=== PATIENT | male | born 1990 ===

== ENCOUNTER → 2022-08-06 11:02 | Outpatient (BNVA) | payer OTHER, SELFPAY | PROVIDERS: PCP Internal Medicine; Visit Provider Internal Medicine Endocrinology, Diabetes & Metabolism | DX: E10.65 Type 1 diabetes mellitus with hyperglycemia (principal); Z96.41 Presence of insulin pump (external) (internal); Z79.4 Long term (current) use of insulin | CPT/HCPCS: 82947; 83036 ==

== ENCOUNTER 2022-08-12 14:06 | Outpatient (REF) | payer OTHER, SELFPAY ==
[2022-08-12 15:20] LABS: Estimated Average Glucose 174 mg/dL; Hemoglobin A1c % 7.7 %
[2022-08-12 15:31] LABS: Alanine Aminotransferase 32 U/L (0-40); Albumin Level 4.6 g/dL (3.5-5.0); Alkaline Phosphatase 100 U/L (39-117); Anion Gap 13 (12-20); Aspartate Amino Transferase 26 U/L (5-37); Bilirubin Total 1.2 mg/dL (0.0-1.0); Blood Urea Nitrogen 17 mg/dL (9-16); Calcium 10.4 mg/dL (8.4-10.2); Carbon Dioxide 33 mmol/L (22-29); Chloride 104 mmol/L (96-108); Estimated Glomerular Filt Rate > 60; Glucose Random 73 mg/dL (60-115); Potassium 4.5 mmol/L (3.3-5.1); Sodium 145 mmol/L (135-145); Total Protein 7.8 g/dL (6.5-8.0)
[2022-08-12 15:32] LABS: Creatinine Urine 155.34 mg/dL; Microalbum/Creatinine Ratio Ur 55.3 ug/mg cr
== END 2022-08-12 14:07 | disposition home or self-care (01) ==
LOC: HO.LAB 14:06
PROVIDERS: Absent Provider Internal Medicine; PCP Internal Medicine; Visit Provider Internal Medicine Endocrinology, Diabetes & Metabolism
DX: E10.65 Type 1 diabetes mellitus with hyperglycemia (principal); R74.01 Elevation of levels of liver transaminase levels
CPT/HCPCS: 36415; 80053; 82043; 83036

== ENCOUNTER 2023-02-23 10:06 | Outpatient (REF) | payer OTHER, SELFPAY ==
[2023-02-23 10:55] LABS: Estimated Average Glucose 180 mg/dL; Hemoglobin A1c % 7.9 % (<6.0)
[2023-02-23 10:58] LABS: Alanine Aminotransferase 50 U/L (0-40); Albumin Level 4.2 g/dL (3.5-5.0); Alkaline Phosphatase 101 U/L (39-117); Anion Gap 13 (12-20); Aspartate Amino Transferase 31 U/L (5-37); Bilirubin Total 0.7 mg/dL (0.0-1.0); Blood Urea Nitrogen 10 mg/dL (9-16); Calcium 10.1 mg/dL (8.4-10.2); Carbon Dioxide 29 mmol/L (22-29); Chloride 107 mmol/L (96-108); Estimated Glomerular Filt Rate > 60; Glucose Random 120 mg/dL (60-115); Potassium 3.8 mmol/L (3.3-5.1); Sodium 145 mmol/L (135-145)
[2023-02-23 10:59] LABS: Cholesterol 124 mg/dL (<200); HDL Cholesterol 40 mg/dL (>40); LDL Cholesterol Calculated 71 mg/dL (<100); Triglycerides 68 mg/dL (<150)
== END 2023-02-23 10:07 | disposition home or self-care (01) ==
LOC: HO.10HDL 10:06
PROVIDERS: Internal Medicine; Visit Provider Internal Medicine Endocrinology, Diabetes & Metabolism
DX: E10.65 Type 1 diabetes mellitus with hyperglycemia (principal); E78.00 Pure hypercholesterolemia, unspecified; I10 Essential (primary) hypertension
CPT/HCPCS: 36415; 80053; 80061; 83036

== ENCOUNTER 2023-02-24 08:23 | Outpatient (AMB) | payer OTHER, SELFPAY ==
[2023-02-24 08:34] VITALS: BP 132/64; PULSE 102; BMI 30.2
--- NOTE | 2023-02-24 08:34 | A.OFFVIS_ITS ---
Intake Vital Signs 02/24/23 08:34 Height 5 ft 8 in Weight 198 lb 6.656 oz BMI 30.2 BP 132/64 Blood Pressure Location Lt brachial Position Sitting Pulse 102 H Pulse Source Pulse Oximeter Intake Visit Reasons: DM1-CONFIRMED Intake Note: Patient present today to follow up on Type 1 Diabetes Mellitus. Patient receives DME supplies through: Pharmacy Patient receives pump supplies through: [employer] Last Diabetic Eye exam: 2020 Last Podiatry Visit: None Random Glucose: 105 mg/dl HgA1C: 7.9% 02/23/23 Derrickman Helper Required: No Accompanied by: Self / Same As Patient Allergies cephalexin [Keflex] Allergy (Unknown, Verified 02/24/23 08:39) Unknown lisinopril Allergy (Unknown, Verified 02/24/23 08:39) CHEST PAINS From KEFLEX Allergy (Unknown, Uncoded 08/06/22 11:04) RASH Medication List - Last Reconciled 02/24/23 by Edgar Cannon MD aspirin (Adult Low Dose Aspirin) 81 mg PO DAILY atorvastatin 10 mg PO BEDTIME blood-glucose sensor (Dexcom G6 Sensor device) As directed change every 10 days blood-glucose transmitter (Dexcom G6 Transmitter device) As directed glucagon 3 mg/actuation (Baqsimi) 3 mg intranasal ONCE insulin lispro-aabc (Lyumjev U-100 Insulin) subcutaneously use up to 140 units/day via insulin pump losartan 50 mg PO DAILY HPI HPI Comments History of Present Illness Details 32 YO M with is seen in consultation fo r T1DM at the request of PCP. Patient last or Dr. Ibarra on 02/09/2019. Pad none sensor shows hyperglycemia overnight which improved slightly during the chimney builder brick hours and then hyperglycemia the rest the afternoon starting at noon spike in blood sugar after dinner. He is not always entering carbohydrates into the pump If On Pump/Sensor: Tandem T slim X 2 with basal IQ Basal rate(s) (units/hour) : 12 {AM/}? to 2 {AM}? 2 units / hr 2 {AM}? to 8 {AM}? 1.8 units / hr 8AM = 1.2 4P =1.3 9P= 1.7 Bolus setting Insulin Carbohydrate Ratio (s) 12 {AM/}? to 12{AM}? 1.6 Correction Factor / Sensitivity Factor 12 A =20 4 A =22 12 P= 18 Active Insulin Time:? 4 hours Target(s): 12 {AM/}? to 12 {AM/} 100 ???* Total daily dose of insulin is 94.2 units with 68% bolus and 32% basal. ??? Patient understands the basic concepts of pump therapy, how to give insulin for meals and snacks, how to troubleshoot for hyper and hypoglycemia. Per the CGM Dexcom CGMS is active 100 % of time . data the patient's predicted A1C is 8.3% Avg glucose is 207 . Variability of 94 The patient's blood sugars were in target 40% of the time, above target 68% of the time, and below target 1% of the time Reports low sugars once a mo . Very rare Treats lows with eat something . Checks sugar after to ensure it is rising. Follows the rule of 15's. Has eyes checked yearly, last eye exam 2 yrs ago has appt April 2023 , no retinopathy. Denies neuropathy, Has microalbumuria on Losartan Has HLD, on statin. No history of CAD. [Had] diabetes education. Diet/Carb counting: Need swork Labs: [facility] Medical History (Updated 08/06/22 @ 11:08 by Edgar Cannon MD) Uncontrolled type 1 diabetes mellitus with hyperglycemia, with long-term current use of insulin Surgical History History of testicular surgery Family History Father No problems noted. Mother No problems noted. Social History Alcohol intake: never Patient Tobacco Use Status: Never used Tobacco Physical Exam Vital Signs: Last Vital Signs Pulse 102 H 02/24/23 08:34 BP 132/64 02/24/23 08:34 BMI result Body Mass Index 30.2 Absence of Cushingoid features. Absence of acromegalic features. Neck exam reveals nl size thyroid about 15 gms. No thyroid nodules palpable. No carotid bruits present. Lungs CTA. Heart S1 S2, Reg R/R. No M/R/ G. Skin exam reveals absence of vitiligo or acanthosis nigricans. Abdominal exam reveals Soft NT/ND with NA BS. No organomegaly present. Extrem Other: Visual exam of foot performed. No ulcerations or open lesions. No onchomycosis, no callouses.Pulses 2 + distally. Sensation intact to monofilament exam. Vibratory sensation sensed 10 seconds in right, 10 seconds in left with 128 Hz tuning fork Results Reviewed Results Reviewed: Laboratory Last Values Glucose (Clinic) 105 mg/dL (60-115) 02/24/23 08:41 Assessment & Plan Assessment & Plan (1) Uncontrolled type 1 diabetes mellitus with hyperglycemia, with long-term current use of insulin: Code(s): E10.65 - Type 1 diabetes mellitus with hyperglycemia Plan: This is a 32-year-old male with history of type 1 diabetes being treated with insulin pump with fair glycemic control and no known microvascular or macrovascular complications. Plan is to [place] schedule appointments with certified breastfeeding educator and methodologist. He was told not to enter phantom carbs prior to meals. Will try to convert him to control IQ after meets with certified breastfeeding educator. Will also attempt to we switch him back to Lyumjev as he was doing better with this than Humalog as tends to eat when taking the bolus. If he continues to have post-lunch and post-dinner excursions, may consider tightening insulin: Carbohydrate at 12:00 to 00:00 to 1:5 which can be done at the educator Lyumjev U-100 samples given to pt lot number [id number] F expiration date 05/12/2023 Medications: New insulin lispro-aabc (Lyumjev U-100 Insulin) subcutaneously use up to 140 units/day via insulin pump 45 mL 5RF Discontinued insulin aspart U-100 (Novolog U-100 Insulin aspart) Discontinued Reason: Doctor's Order infuse up to 140 units daily via insulin pump subcutaneously; 40 mL 5RF Coding Level of Care Code Est Pt Level 4 (96626) Diagnoses Uncontrolled type 1 diabetes mellitus with hyperglycemia, with long-term current use of insulin E10.65
[2023-02-24 08:45] LABS: Glucose, Whole Blood 105 mg/dL (60-115)
== END 2023-02-24 09:45 | disposition home or self-care (01) ==
PROVIDERS: PCP Internal Medicine; Visit Provider Internal Medicine Endocrinology, Diabetes & Metabolism
DX: E10.65 Type 1 diabetes mellitus with hyperglycemia (principal)
CPT/HCPCS: 99214

== ENCOUNTER → 2023-02-24 08:23 | Outpatient (BNVA) | payer OTHER, SELFPAY | PROVIDERS: PCP Internal Medicine; Visit Provider Internal Medicine Endocrinology, Diabetes & Metabolism | DX: E10.65 Type 1 diabetes mellitus with hyperglycemia (principal); Z96.41 Presence of insulin pump (external) (internal) | CPT/HCPCS: 82947 ==

== ENCOUNTER 2023-08-09 14:21 | Outpatient (AMB) | payer OTHER, SELFPAY ==
--- NOTE | 2023-08-09 14:22 | A.OFFVIS_ITS ---
Vital Signs 08/09/23 14:25 Height 5 ft 8 in Weight 191 lb 12.835 oz BMI 29.2 BP 128/70 Blood Pressure Location Rt brachial Position Sitting Pulse 71 Pulse Source Pulse Oximeter Intake Visit Reasons: f/u Type 1 DM-lvm Intake Note: Patient presents today to follow up on D1MT. Last Diabetic Eye exam: 06/2023 Last Podiatry Visit: Doens't have one Random Glucose: 156 mg/dl HgA1c: 7.9% Life Sciences Manager Required: No Accompanied by: Self / Same As Patient Allergies cephalexin [Keflex] Allergy (Unknown, Verified 08/09/23 14:29) Unknown lisinopril Allergy (Unknown, Verified 08/09/23 14:29) CHEST PAINS From KEFLEX Allergy (Unknown, Uncoded 08/09/23 14:29) RASH HPI Comments Details: 32 YO M with is seen in consultation for T1DM at the request of PCP. If On Pump/Sensor: Tandem T slim X 2 with basal IQ Basal rate(s) (units/hour) : 12 {AM/}? to 2 {AM}? 2 units / hr 2 {AM}? to 8 {AM}? 1.8 units / hr 8AM = 1.2 4P =1.3 9P= 1.7 Bolus setting Insulin Carbohydrate Ratio (s) 12 {AM/}? to 12{AM}? 1.6 Correction Factor / Sensitivity Factor 12 A =20 4 A =22 12 P= 18 Active Insulin Time:? 4 hours Target(s): 12 {AM/}? to 12 {AM/} 100 ???* Total daily dose of insulin is 80.52 units with 60% bolus and 40% basal. ??? Patient understands the basic concepts of pump therapy, how to give insulin for meals and snacks, how to troubleshoot for hyper and hypoglycemia. Per the CGM Dexcom CGMS is active 100 % of time . data the patient's predicted A1C is 7.8% Avg glucose is 186 . Variability of 69 The patient's blood sugars were in target 43% of the time, above target 55% of the time, and below target 1% of the time Pattern shows persistent hyperglycemia throughout the night with elevation point of care after breakfast Reports no low sugars Treats lows with eat something . Checks sugar after to ensure it is rising. Follows the rule of 15's. Has eyes checked yearly, last eye exam 1 mo ago , no retinopathy. Denies neuropathy, Has microalbumuria on Losartan Has HLD, on statin. No history of CAD. [Had] diabetes education. Diet/Carb counting: Need swork Labs: [facility] Medical History (Updated 08/06/22 @ 11:08 by Edgar Cannon MD) Uncontrolled type 1 diabetes mellitus with hyperglycemia, with long-term current use of insulin Surgical History History of testicular surgery Family History Father No problems noted. Mother No problems noted. Social History Alcohol intake: never Patient Tobacco Use Status: Never used Tobacco Physical Exam Vital Signs: Last Vital Signs Pulse 71 08/09/23 14:25 BP 128/70 08/09/23 14:25 BMI result Body Mass Index 29.2 Absence of Cushingoid features. Absence of acromegalic features. Neck exam reveals nl size thyroid about 15 gms. No thyroid nodules palpable. No carotid bruits present. Lungs CTA. Heart S1 S2, Reg R/R. No M/R/ G. Skin exam reveals absence of vitiligo or acanthosis nigricans. Abdominal exam reveals Soft NT/ND with NA BS. No organomegaly present. Extrem Other: Visual exam of foot performed. No ulcerations or open lesions. No onchomycosis, no callouses.Pulses 2 + distally. Sensation intact to monofilament exam. Vibratory sensation sensed 10 seconds in right, 10 seconds in left with 128 Hz tuning fork Results AMB Hemoglobin A1c AMB Hemoglobin A1c 7.9 % Last Edit by GUILLAUME Villareal on 08/09/23 14:46 Results Reviewed Results Reviewed: Laboratory Last Values Glucose (Clinic) 156 mg/dL (60-115) H 08/09/23 14:32 Hgb A1c (Clinic) 7.9 % (4.0-6.0) H 08/09/23 14:38 Assessment & Plan Assessment & Plan (1) Uncontrolled type 1 diabetes mellitus with hyperglycemia, with long-term current use of insulin: Code(s): E10.65 - Type 1 diabetes mellitus with hyperglycemia Category: Medical Plan: This is a 32-year-old male with history of type 1 diabetes being treated with insulin pump with fair glycemic control and no known m icrovascular or macrovascular complications. Plan is to [place] schedule appointments with personal development educator and termite renewal inspector. Will increase basal rate to 2.2 at 12 AM and 2 units/hr at 2 AM Will try to convert him to control IQ after meets with personal development educator. If he continues to have post-lunch and post-dinner excursions, may consider tightening insulin: Carbohydrate at 12:00 to 00:00 to 1:5 which can be done at the educator. We also talked about potentially switching to the iLet device. We will check a microalbumin to creatinine ratio Orders: Orders AMB Hemoglobin A1c Today E10.65 - Type 1 diabetes mellitus with hyperglycemia, Z13.9 - Encounter for screening, unspecified Microalbumin, Random (w Creat) Today E10.65 - Type 1 diabetes mellitus with hyperglycemia Coding Level of Care Code Est Pt Level 4 (24980) Diagnoses Uncontrolled type 1 diabetes mellitus with hyperglycemia, with long-term current use of insulin E10.65
[2023-08-09 14:25] VITALS: BP 128/70; PULSE 71; BMI 29.2
[2023-08-09 14:37] LABS: Glucose, Whole Blood 156 mg/dL (60-115)
== END 2023-08-09 15:14 | disposition home or self-care (01) ==
PROVIDERS: PCP Internal Medicine; Visit Provider Internal Medicine Endocrinology, Diabetes & Metabolism
DX: Z13.9 Encounter for screening, unspecified (principal); E10.65 Type 1 diabetes mellitus with hyperglycemia
CPT/HCPCS: 99214

== ENCOUNTER → 2023-08-09 14:21 | Outpatient (BNVA) | payer OTHER, SELFPAY | PROVIDERS: PCP Internal Medicine; Visit Provider Internal Medicine Endocrinology, Diabetes & Metabolism | DX: E10.65 Type 1 diabetes mellitus with hyperglycemia (principal); Z79.4 Long term (current) use of insulin | CPT/HCPCS: 82947; 83036 ==

== ENCOUNTER 2023-09-07 07:34 | Outpatient (AMB) | payer OTHER, SELFPAY ==
--- NOTE | 2023-09-07 08:38 | MHC.AMDMED ---
Intake Intake Visit Reasons: Type 1 DM-confirmed Salesperson Women'S Dresses Required: No Accompanied by: Self / Same As Patient Allergies cephalexin [Keflex] Allergy (Unknown, Verified 08/09/23 14:29) Unknown lisinopril Allergy (Unknown, Verified 08/09/23 14:29) CHEST PAINS From KEFLEX Allergy (Unknown, Uncoded 08/09/23 14:29) RASH HPI Comprehensive Diabetes Asmnt Most Recent Diabetes Results: Hemoglobin A1c 6.5 % 12/14/18 Microalb/Creat Ratio 55.3 ug/mg cr 08/12/22 Cholesterol 124 mg/dL (<200) 02/23/23 HDL Cholesterol 40 mg/dL (>40) L 02/23/23 Triglycerides 68 mg/dL (<150) 02/23/23 Creatinine 1.06 mg/dL (0.5-1.4) 02/23/23 Blood Urea Nitrogen 10 mg/dL (9-16) 02/23/23 Sodium 145 mmol/L (135-145) 02/23/23 Potassium 3.8 mmol/L (3.3-5.1) 02/23/23 Chloride 107 mmol/L (96-108) 02/23/23 Carbon Dioxide 29 mmol/L (22-29) 02/23/23 Calcium 10.1 mg/dL (8.4-10.2) 02/23/23 AST 31 U/L (5-37) 02/23/23 ALT 50 U/L (0-40) H 02/23/23 Total Protein 7.0 g/dL (6.5-8.0) 02/23/23 Albumin 4.2 g/dL (3.5-5.0) 02/23/23 [facility] Medical History (Updated 08/06/22 @ 11:08 by Edgar Cannon MD) Uncontrolled type 1 diabetes mellitus with hyperglycemia, with long-term current use of insulin Surgical History History of testicular surgery Family History Father No problems noted. Mother No problems noted. Social History Alcohol intake: never Patient Tobacco Use Status: Never used Tobacco Assessment & Plan Assessment & Plan (1) Uncontrolled type 1 diabetes mellitus with hyperglycemia, with long-term current use of insulin: Code(s): E10.65 - Type 1 diabetes mellitus with hyperglycemia Plan: Pump Assessment: Type of DM: type 1 Currently on T-Slim with Basal IQ Reviewed insulin pump basics today with Patient. Explained pros and cons of insulin pumps. Showed pt various pumps, infusion sets, and cgms currently available. Reviewed need to wear pump 24/7 and need to change infusion set every 3 days. Also stressed importance of frequent BG checks, 4x daily minimum or use pump that is integrated with CGM.? TDD:80 Patient demonstrated motivation for continued insulin pump education and understands the need to complete education prior to starting insulin pump for best outcome. Will follow up when he decides about new pump Portions of this note were created using voice recognition software, please excuse any words or phrases that may have been misinterpreted. Coding Level of Care Code Est Pt Level 1 (86474) Diagnoses Uncontrolled type 1 diabetes mellitus with hyperglycemia, with long-term current use of insulin E10.65
== END 2023-09-07 08:49 | disposition home or self-care (01) ==
PROVIDERS: PCP Internal Medicine; Visit Provider Registered Nurse Diabetes Educator
DX: E10.65 Type 1 diabetes mellitus with hyperglycemia (principal)

== ENCOUNTER → 2023-09-07 07:34 | Outpatient (BNVA) | payer OTHER, SELFPAY | PROVIDERS: PCP Internal Medicine; Visit Provider Registered Nurse Diabetes Educator | DX: E10.65 Type 1 diabetes mellitus with hyperglycemia (principal); Z96.41 Presence of insulin pump (external) (internal) | CPT/HCPCS: 99211 ==

== ENCOUNTER 2024-03-10 09:04 | Outpatient (AMB) | payer OTHER, SELFPAY ==
--- NOTE | 2024-03-10 07:32 | A.OFFVIS_ITS ---
Vital Signs 03/10/24 09:09 Height 5 ft 8 in Weight 189 lb 9.561 oz BMI 28.8 BP 120/80 Blood Pressure Location Rt brachial Position Sitting Pulse 96 Pulse Source Pulse Oximeter Intake Visit Reasons: type 1 dm Intake Note: Patient presents today to re-establish treatment for Type 1 Diabetes Mellitus: Last Diabetic eye exam was on: DUE Last Podiatry exam was on: Patient does not see a Library Services Dean Most recent HbA1c: 7.6%, 03/10/2024 Random Glucose- 112 mg/dL, Today Pattern Drafter Required: No Accompanied by: Self / Same As Patient Allergies cephalexin [Keflex] Allergy (Unknown, Verified 03/10/24 09:17) Unknown lisinopril Allergy (Unknown, Verified 03/10/24 09:17) CHEST PAINS From KEFLEX Allergy (Unknown, Uncoded 03/10/24 09:17) RASH HPI Comments Details: 32 YO M with is seen in f/u for T1DM at the request of PCP. He was last seen by Dr. Cannon 07/31/2023 at which time basal rates were increased and by Bertha WILCOX 09/07/2023 at which time switching over to an islet pump was discussed. A1c 03/10/2024 7.6% 08/09/2023 7.9%. Total daily dose of insulin 67.8 units Forty-six % basal 31.3 units 54% bolus 36.5 units Backup insulin plan 30 units of Lantus plus 6-10 units of short-acting with meals based on blood sugar If On Pump/Sensor: Tandem T slim X 2 with basal IQ Basal rate(s) (units/hour) : 12 {AM/}? to 2 {AM}? 2.2 units / hr 2 {AM}? to 8 {AM}? 2 units / hr 8AM = 1.2 4P =1.3 9P= 1.7 Bolus setting Insulin Carbohydrate Ratio (s) 12 {AM/}? to 12{AM}? 1.6 Correction Factor / Sensitivity Factor 12 A =20 4 A =22 12 P= 18 Active Insulin Time:? 4 hours Target(s): 12 {AM/}? to 12 {AM/} 100 Dexcom average glucose: 202 14 day continuous glucose monitor report reviewed Glucose Managment indicator 8.1 % Days with CGM data 87 % TIme in ranges: Thirty-three % very high (above 250) 26 % high ?(181-250) 39 % in range ?(70-180] 2 % low (69-55) 1 % ?very low (below 54) Standard Deviation Interpretation No low at night and a few scattered lows after high correction. He is not c orrecting for meals often times until he goes high and then occasional we will drop low particular for lunch. Overall running 60 points higher than desired Treats lows with:eats something . Checks sugar after to ensure it is rising. Follows the rule of 15's. No retinopathy: Has eyes checked yearly, last eye exam: Denies neuropathy, Has nephropathy: microalbumuria on Losartan 08/12/22: 86.0 Has HLD, on statin. No history of CAD. Had diabetes education. Diet/Carb counting: [facility] Medical History (Updated 03/10/24 @ 07:40 by Mary Kelsey NP) Nephropathy Uncontrolled type 1 diabetes mellitus with hyperglycemia, with long-term current use of insulin Surgical History History of testicular surgery Family History Father No problems noted. Mother No problems noted. Social History Alcohol intake: never Patient Tobacco Use Status: Never used Tobacco Physical Exam Vital Signs: Last Vital Signs Pulse 96 03/10/24 09:09 BP 120/80 03/10/24 09:09 BMI result Body Mass Index 28.8 Const Other: Absence of Cushingoid features. Absence of acromegalic features. Neck exam reveals nl size thyroid about 15 gms. No thyroid nodules palpable. Heart S1 S2, Reg R/R. No M/R G. Skin exam reveals absence of vitiligo or acanthosis nigricans. Visual exam of foot performed. No ulcerations or open lesions. No inter digit maceration or fissuring. No onychomycosis, no callouses. Sensation intact to monofilament exam. Vibratory sensation is normal with 128 Hz tuning fork. Office Procedures Glucose Monitoring Details Details: see [facility] [id number] - Glucose monitoring, continuous-physician I&R Procedure code (CPT) selection complete Results AMB Hemoglobin A1c AMB Hemoglobin A1c 7.6 % Last Edit by GUILLAUME Chapa on 03/10/24 09:27 Results Reviewed Results Reviewed: Laboratory Last Values Glucose (Clinic) 112 mg/dL (60-115) 03/10/24 09:16 Assessment & Plan Assessment & Plan (1) Uncontrolled type 1 diabetes mellitus with hyperglycemia, with long-term current use of insulin: Code(s): E10.65 - Type 1 diabetes mellitus with hyperglycemia Category: Medical Plan: 33-year-old type 1 diabetic with nephropathy with preserved renal function with most recent A1c 7.6% 03/10/24 Continue insulin pump. He is due for a pump upgrade in is considering his options. He is concerned about potential kinked catheters with a beta bionics islet and does not wish to use a steel catheter. Has test strips, lancets, glucometer, Has glucagon nasal spray at home declines ketone test strips will purchase if needed The patient had an opportunity to ask questions regarding treatment plan. The patient expressed understanding and agreement with the above treatment plan. The patient is aware they should contact our office by phone for worsening glucose readings or for any low blood sugars which may warrant a change in diabetes medication. Compliance is encouraged with medications and any followup testing/consults which may have been ordered. (2) Nephropathy: Code(s): N28.9 - Disorder of kidney and ureter, unspecified Category: Medical Plan: On ARB: microalbumin 2022 86.0 02/23/2023 eGFR>60 labs ordered Orders: Orders Basic Metabolic Panel Fasting Today E10.65 - Type 1 diabetes mellitus with hyperglycemia Lipid Panel Today E10.65 - Type 1 diabetes mellitus with hyperglycemia AMB Glucose Monitoring Today E10.65 - Type 1 diabetes mellitus with hyperglycemia AMB Hemoglobin A1c Today E10.65 - Type 1 diabetes mellitus with hyperglycemia Microalbumin, Random (w Creat) Today E10.65 - Type 1 diabetes mellitus with hyperglycemia Creatinine Urine Today E10.65 - Type 1 diabetes mellitus with hyperglycemia Patient Instructions: The patient was counseled to achieve a target A1C of 7% (154 avg). Fasting blood sugars should be 90-130 in the morning and less than 180 two hours after meals. Reviewed the relationship between poor diabetic control and the development of complications. The patient was counseled to always carry a source of sugar and on the rule of 15's: Take 3 glucose tablets and repeat again in 15 minutes if blood sugar is not in normal range. Continue to repeat every 15 minutes until blood sugar is normal. Symptoms of DKA (diabetic ketoacidosis): early: frequent urination, dry mouth, f atigue, feeling ill, severe symptoms: ketones in the urine, abdominal pain, nausea, vomiting and weakness. It is important to hydrate with sugar free liquids every 15-30 minutes and bring the sugars down to normal levels. If you are moderate or severe with ketones or unable to bring glucose to less than 200, go to the emergency room. Troubleshooting after starting new pod or inserting new insulin set: Occlusion, adhesive tape sensitivity, redness Check BG 2 hours after site change Safety information: Importance of a backup plan, for manual injections, proper prescriptions and emergency supplies ketone strips, and rules for testing for ketones Check your feet daily looking for any signs of infection, ulceration and seek medical attention if this occurs. Break in shoes gradually and do not wear open-toed shoes or walk barefooted. Coding Level of Care Code Est Pt Level 4 (46068) Diagnoses Uncontrolled type 1 diabetes mellitus with hyperglycemia, with long-term current use of insulin E10.65 Nephropathy N28.9 CPT Codes Details - CPT: 10751 - Glucose monitoring, continuous-physician I&R ([id number]) Time Spent (min) 35 Comment Reviewing labs/provider notes, glucose sensor/pump reports, face to face, chart doc
[2024-03-10 09:09] VITALS: BP 120/80; PULSE 96; BMI 28.8
[2024-03-10 09:22] LABS: Glucose, Whole Blood 112 mg/dL (60-115)
== END 2024-03-10 09:48 | disposition home or self-care (01) ==
PROVIDERS: PCP Internal Medicine; Visit Provider Nurse Practitioner Adult Health
DX: E10.65 Type 1 diabetes mellitus with hyperglycemia (principal); N28.9 Disorder of kidney and ureter, unspecified
CPT/HCPCS: 95251; 99214

== ENCOUNTER → 2024-03-10 09:04 | Outpatient (BNVA) | payer OTHER, SELFPAY | PROVIDERS: PCP Internal Medicine; Visit Provider Nurse Practitioner Adult Health | DX: E10.65 Type 1 diabetes mellitus with hyperglycemia (principal); E10.21 Type 1 diabetes mellitus with diabetic nephropathy; Z96.41 Presence of insulin pump (external) (internal) | CPT/HCPCS: 82947; 83036 ==

== ENCOUNTER 2024-08-03 11:30 | Outpatient (AMB) | payer OTHER, SELFPAY ==
--- NOTE | 2024-08-03 11:30 | A.OFFVIS_ITS ---
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 He was last seen 03/10/24 with an A1c 03/10/2024 7.6% A1C 08/03/24: 7.8% If On Pump/Sensor: Tandem T slim X 2 with basal IQ He is due for it pump upgrade and has a cracked screen. He is still able to use the controls on the pump. He has been using Fiasp in his pump and reports that his numbers were better when he was on lyumjev and is requesting a change to this Basal rate(s) (units/hour) : 12 {AM/}? to 2 {AM}? 2.2 units / hr 2 {AM}? to 4 {AM}? 2 units / hr 4 am to 8AM = 1.8 8am to 4 pm 1.2 4P-9pm 1.3=1.3 9P-12am 1.7 Bolus setting Insulin Carbohydrate Ratio (s) 12 {AM/}? to 12{AM}? 1.6 Correction Factor / Sensitivity Factor 12 A =20 4 A =22 12 P= 18 Active Insulin Time:? 4 hours Target(s): 12 {AM/}? to 12 {AM/} 100 Dexcom average glucose: 202 14 day continuous glucose monitor report reviewed Glucose Managment indicator 8.1 % Days with CGM data 95 % TIme in ranges: Thirty-three % very high (above 250) 25 % high ?(181-250) 40 % in range ?(70-180] 2 % low (69-55) 0% ?very low (below 54) Standard Deviation Interpretation Occasionally dips to below 80 if he over corrects overall average 50 points higher than target with some postprandial elevation Treats lows with:eats something . Checks sugar after to ensure it is rising. Follows the rule of 15's. WORKS as an RN on a telemetry unit No retinopathy: Has eyes checked yearly, last eye exam: due soon he will schedule Denies neuropathy, Has nephropathy: microalbumuria on Losartan 08/12/22: 86.0 Has HLD, on statin. No history of CAD. Had diabetes education. Diet/Carb counting:enters carbs, not always entering all carbs [facility] Medical History Nephropathy Uncontrolled type 1 diabetes mellitus with hyperglycemia, with long-term current use of insulin Surgical History History of testicular surgery Family History Father No problems noted. Mother No problems noted. Social History Alcohol intake: never Patient Tobacco Use Status: Never used Tobacco Physical Exam Vital Signs: Last Vital Signs Pulse 81 08/03/24 11:33 BP 120/76 08/03/24 11:33 Pulse Ox 98 08/03/24 11:33 Oxygen Delivery Method Room Air 08/03/24 11:33 BMI result Body Mass Index 28.9 Const Other: Absence of Cushingoid features. Absence of acromegalic features. Neck exam reveals nl size thyroid about 15 gms. No thyroid nodules palpable. Heart S1 S2, Reg R/R. No M/R G. Skin exam reveals absence of vitiligo or acanthosis nigricans. No eema Visual exam of foot performed. No ulcerations or open lesions. No inter digit maceration or fissuring. No onychomycosis, no callouses. Sensation intact to monofilament exam. Vibratory sensation is normal with 128 Hz tuning fork. Pulses positive Office Procedures Glucose Monitoring Details Details: see hpi 08297 - Glucose monitoring, continuous-physician I&R Procedure code (CPT) selection complete Results AMB Hemoglobin A1c AMB Hemoglobin A1c 7.8 % Last Edit by GUILLAUME Melendrez on 08/03/24 11:53 Results Reviewed Results Reviewed: Laboratory Last Values Glucose (Clinic) 141 mg/dL (60-115) H 08/03/24 11:39 Hgb A1c (Clinic) 7.8 % (4.0-6.0) H 08/03/24 11:53 Assessment & Plan Assessment & Plan (1) Uncontrolled type 1 diabetes mellitus with hyperglycemia, with long-term current use of insulin: Code(s): E10.65 - Type 1 diabetes mellitus with hyperglycemia Category: Medical Plan: 33-year-old type 1 with microalbuminuria with the an A1c of 7.8%. He declines adjustment today and we will be more consistent with a entering carbs. He has noticed overall that his numbers running in target with Fiasp than when he was on Lyumjev. will order Lyumjev and see if this is can be approved by his pharmacy He has agreed to restart Arb His pump is out of warranty and has a cracked screen. We reviewed pros and cons of different pumps. He will make a decision on which pump to select and we will then set up a appointment with the Bertha [employer] to get approval started. He is aware his pump is out of warranty and then it would not be replaced if it failed. I have sent a prescription for Lantus 30 units backup and should his pump fail he will take Humalog 10-12 units with meals as needed. The patient had an opportunity to ask questions regarding treatment plan. The patient expressed understanding and agreement with the above treatment plan. The patient is aware they should contact our office by phone for worsening glucose readings or for any low blood sugars which may warrant a change in diabetes medication. Compliance is encouraged with medications and any followup testing/consults which may have been ordered. Orders: Orders AMB Glucose Monitoring Today E10.65 - Type 1 diabetes mellitus with hyperglycemia AMB Hemoglobin A1c Today E10.65 - Type 1 diabetes mellitus with hyperglycemia Medications: New Lyumjev U-100 Insulin (insulin lispro-aabc) up to 110 units of insulin daily via pump subcutaneously every morning; 90 days 90 mL 3RF MDD 110 NS Lantus U-100 Insulin (insulin glargine) 31 units (0.31 mL) subcut DAILY 30 days PRN 10 mL 2RF prn pump failure NS Refilled blood-glucose sensor (Dexcom G6 Sensor device) DIRECTED CHANGE EVERY 10 DAYS 9 ea 4RF Discontinued atorvastatin Discontinued Reason: Duplicate 10 mg PO BEDTIME 30 tabs 5RF losartan Discontinued Reason: Doctor's Order 50 mg PO DAILY 30 tabs 5RF Coding Level of Care Code Est Pt Level 4 (00949) Complex EM visit Add On G2211 Diagnoses Uncontrolled type 1 diabetes mellitus with hyperglycemia, with long-term current use of insulin E10.65 CPT Codes Details - CPT: 20613 - Glucose monitoring, continuous-physician I&R ([id number]) Time Spent (min) 30 Comment Time spent reviewing labs/provider notes, face to face, chart doc
[2024-08-03 11:33] VITALS: BP 120/76; PULSE 81; O2SAT 98; BMI 28.9
[2024-08-03 11:43] LABS: Glucose, Whole Blood 141 mg/dL (60-115)
--- OUTSIDE RECORDS SUMMARY | 2024-08-03 13:42 | XMS_ITS | Encounter Summary ---
Author Organization [facility] Address [address] [place] [address] Phone Care Team Providers Care Greenhouse Worker Name Role Phone Hang Herman MD Primary Care Provider Inga candelario Encounter Details Date Type Department Care Team (Late st Contact Info) Description 06/30/2011 Documentation [facility] Family Medicine [address] [place] [address] Family Medicine, Physician [address] [place], [place] [id number] Social History Tobacco Use Types Packs/Day Years Used Date Smoking Tobacco: Never Assessed Sex and Gender Information Value Date Recorded Sex Assigned at Not on file Legal Sex Male 4:41 PM EDT Gender Identity Not on file Sexual Orientation Not on file documented as of this encounter Plan of Treatment Not on file documented as of this encounter Visit Diagnoses Not on filedocumented in this encounter Care Teams Greenhouse Worker Relationship Specialty Start Date End Date Hang Hermna MD PCP - General 10/09/16 05/13/22 documented as of this encounter
== END 2024-08-03 12:07 | disposition home or self-care (01) ==
LOC: HO.ENCR 11:30
PROVIDERS: PCP Internal Medicine; Visit Provider Nurse Practitioner Adult Health
DX: E10.65 Type 1 diabetes mellitus with hyperglycemia (principal)
CPT/HCPCS: 95251; 99214

== ENCOUNTER → 2024-08-03 11:30 | Outpatient (BNVA) | payer OTHER, SELFPAY | PROVIDERS: PCP Internal Medicine; Visit Provider Nurse Practitioner Adult Health | DX: E10.65 Type 1 diabetes mellitus with hyperglycemia (principal) | CPT/HCPCS: 82947; 83036 ==

== ENCOUNTER 2024-11-09 14:00 | Outpatient (AMB) | payer OTHER, SELFPAY ==
[2024-11-09 14:03] VITALS: BP 128/74; PULSE 63; O2SAT 98; BMI 29.9
--- NOTE | 2024-11-09 14:03 | A.OFFVIS_ITS ---
Vital Signs 3 11/09/24 14:03 Height 5 ft 8 in Weight 196 lb 6.91 oz BMI 29.9 BP 128/74 Blood Pressure Location Lt brachial Position Sitting Pulse 63 Pulse Source Pulse Oximeter Pulse Oximetry (%) 98 Oxygen Delivery Method Room Air Intake Visit Reasons: T1DM Intake Note: Patient present today for Type 1 Diabetes Mellitus Last Diabetic eye exam: Last exam was over 1 year ago, patient is going to schedule appt. Last Podiatry Visit: Doesn't have one. Random Glucose: 151 mg/dl HgA1C: 7.0% Ramp Flight Attendant Required: No Accompanied by: Self / Same As Patient Allergies cephalexin (Keflex) Allergy (Unknown, Verified 11/09/24 14:18) Unknown lisinopril Allergy (Unknown, Verified 11/09/24 14:18) CHEST PAINS From KEFLEX Allergy (Unknown, Uncoded 11/09/24 14:18) RASH Medication List - Last Reconciled 11/09/24 by Shanon George MD blood-glucose sensor (Dexcom G6 Sensor device) DIRECTED CHANGE EVERY 10 DAYS blood-glucose transmitter (Dexcom G6 Transmitter device) As directed glucagon 3 mg/actuation (Baqsimi) 3 mg intranasal ONCE insulin aspart (niacinamide) 100 unit/mL (Fiasp U-100 Insulin) infuse up to 140 units per day via the insulin pump subcutaneously daily; infuse up to 140 units per day via the insulin pump subcutaneous 30 days Lantus U-100 Insulin (insulin glargine) 31 units (0.31 mL) subcut DAILY PRN 30 days NS Lyumjev U-100 Insulin (insulin lispro-aabc) up to 110 units of insulin daily via pump subcutaneously every morning; 90 days MDD 110 NS HPI Comments Details: 34 YO M with is seen in f/u for T1DM Last seen July 2024 by Mary Pastrana APRN. Diagnosed at 18 years of age. CRYS ?? A1c 03/10/2024 7.6% A1C 08/03/24: 7.8% 11/09/2024: 7% POC If On Pump/Sensor: Tandem T slim X 2 with basal IQ He is due for it pump upgrade and has a cracked screen. He is still able to use the controls on the pump. He has been using Fiasp in his pump and reports that his numbers were better when he was on lyumjev and is requesting a change to this, currently prescribed both lung given Fiasp, he is trying to figure out co-pay to see which 1 is better. He is also waiting for the pump upgrade, working with the pump company. Tandem T slim with basal IQ with Dexcom G6 downloaded October 27 to 11/09/2024 Average reading 170 mg/dL Standard deviation 63 mg/dL Coefficient of variation 37% G SC 7.4% Within target range 61% High 27% Very high 11% Low 0.5% Very low 0.1% Basal IQ summary Time activity 7% Insulin usage Average daily dose CAR 0.03 units Basal 44%, 34.85 units Bolus 56%, 45.18 units Average daily carbs 231 g Basal rate(s) (units/hour) : 12 {AM/}? to 2 {AM}? 2.2 units / hr 2 {AM}? to 4 {AM}? 2 units / hr 4 am to 8AM = 1.8 8am to 4 pm 1.2 4P-9pm 1.3=1.3 9P-12am 1.7 Bolus setting Insulin Carbohydrate Ratio (s) 12 {AM/}? to 12{AM}? 1:6 Correction Factor / Sensitivity Factor 12 A =20 4 A =22 12 P= 18 Active Insulin Time:? 4 hours Target(s): 12 {AM/}? to 12 {AM/} 100 Treats lows with:eats something . Checks sugar after to ensure it is rising. Follows the rule of 15's. WORKS as an RN on a telemetry unit at [employer] No retinopathy: Has eyes checked yearly, last eye exam: due soon he will schedule Denies neuropathy,, does not see director of publications Has nephropathy: Urine microalbumin to creatinine ratio July, he used to be on losartan 25 mg daily but has not taken it for a long time. LDL 101 mg/dL July 2024, has not taken a statin long time No history of CAD. Had diabetes education. In 2023, upcoming appointment with CDE 11/14/2024. Diet/Carb counting:enters carbs, not always entering all carbs Physical exam General: sitting comfortably in no acute distress Cardiac: normal heart sounds Pulm: normal breath sounds B/L, no added breath sounds Abd: not distended, no tenderness Extremities: no edema, no signs of myxedema Laboratory Tests 12/14/18 08/12/22 02/23/23 07:46 14:18 10:15 Hgb 16.8 Hct 50.8 Plt Count 220 Creatinine 1.06 Estimated GFR > 60 Glucose (Clinic) Hgb A1c (Clinic) Hemoglobin A1c % 7.9 H AST 31 ALT 50 H Triglycerides 68 Cholesterol 124 LDL Cholesterol, Calc 71 HDL Cholesterol 40 L Urine Creatinine 155.34 Urine Microalbumin 86.0 Microalb/Creat Ratio 55.3 08/09/23 03/10/24 03/10/24 14:38 09:16 09:24 Hgb Hct Plt Count Creatinine Estimated GFR Glucose (Clinic) 112 Hgb A1c (Clinic) 7.9 H 7.6 H Hemoglobin A1c % AST ALT Triglycerides Cholesterol LDL Cholesterol, Calc HDL Cholesterol Urine Creatinine Urine Microalbumin Microalb/Creat Ratio 08/03/24 08/03/24 11:39 11:53 Hgb Hct Plt Count Creatinine Estimated GFR Glucose (Clinic) 141 H Hgb A1c (Clinic) 7.8 H Hemoglobin A1c % AST ALT Triglycerides Cholesterol LDL Cholesterol, Calc HDL Cholesterol Urine Creatinine Urine Microalbumin Microalb/Creat Ratio [facility] Medical History (Updated 11/09/24 @ 15:05 by Shanon George MD) Insulin pump in place 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 Mother No problems noted. Social History Alcohol intake: never Patient Tobacco Use Status: Never used Tobacco Physical Exam Vital Signs: Last Vital Signs Pulse 63 11/09/24 14:03 BP 128/74 11/09/24 14:03 Pulse Ox 98 11/09/24 14:03 Oxygen Delivery Method Room Air 11/09/24 14:03 BMI result Body Mass Index 29.9 Office Procedures Glucose Monitoring Details Details: See HPI 08353 - Glucose monitoring, continuous-physician I&R Procedure code (CPT) selection complete Results AMB Hemoglobin A1c 2 AMB Hemoglobin A1c 7.0 % Last Edit by GUILLAUME Villareal on 11/09/24 14:45 Results Reviewed Results Reviewed: Laboratory Last Values Glucose (Clinic) 151 mg/dL (60-115) H 11/09/24 14:20 Hgb A1c (Clinic) 7.0 % (4.0-6.0) H 11/09/24 14:24 Assessment & Plan Assessment & Plan (1) Uncontrolled type 1 diabetes mellitus with hyperglycemia, with long-term current use of insulin: Code(s): E10.65 - Type 1 diabetes mellitus with hyperglycemia Category: Medical Plan: 34-year-old male with type 1 diabetes mellitus with complications of microalbuminuria on tandem T slim insulin pump with Dexcom G6 with basal IQ, with Fiasp. POC A1c 7% 11/09/2024. Pump Dexcom data downloaded shows he is not pre bolusing, in most of the times he is entering carbs late resulting in hyperglycemia then followed by hypoglycemia. Educated about this. No pump settings changed today. Plan: -continue current pump settings -decide between Lyumjev and Fiasp let us know next appointment -upgrade to Dexcom G7 sensor -upgrade to control like you -has to make eye appointment, overdue, no history of retinopathy (2) Nephropathy: Code(s): N28.9 - Disorder of kidney and ureter, unspecified Category: Medical Plan: Has microalbuminuria Has not taking losartan a long time. 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: Code(s): E10.69 - Type 1 diabetes mellitus with other specified complication; E78.5 - Hyperlipidemia, unspecified Category: Medical Plan: LDL 101 mg/dL from July 2024 Plan: -start atorvastatin 20 mg daily (4) Insulin pump in place: Code(s): Z96.41 - Presence of insulin pump (external) (internal) Category: Medical Plan: Backup Lantus prescribed, to inject 30 units of Lantus in case of pump failure plus regular doses of short-acting insulin Prescribed backup pen needles Has nasal Baqsimi Says 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 Orders: Orders 2 Comprehensive Met. Panel 2 Weeks E10.65 - Type 1 diabetes mellitus with hyperglycemia AMB Glucose Monitoring Today E10.65 - Type 1 diabetes mellitus with hyperglycemia AMB Hemoglobin A1c Today E10.65 - Type 1 diabetes mellitus with hyperglycemia, Z13.9 - Encounter for screening, unspecified Medications: New 2 pen needle, diabetic (1st Tier Unifine Pentips) As directed to inject lantus in case of pump failure 50 ea 4RF blood-glucose sensor (Dexcom G7 Sensor device) As directed every 10 days 9 ea 5RF E10.65 - Type 1 diabetes mellitus with hyperglycemia atorvastatin (Lipitor) 20 mg PO BEDTIME 90 tabs 3RF losartan 25 mg PO DAILY 90 tabs 3RF Patient Instructions: Start atorvastatin 20 mg daily Start losartan 25 mg daily Do blood work in 2-3 weeks Upgrade to Dexcom G7, if you have trouble with the pump upgrade or sensor upgrade, please do schedule a follow up with clinical educator to help you with the technology part Backup Lantus prescribed: Backup plan failure to inject 30 units of Lantus plus regular doses of short-acting insulin Follow up in December 2024 Coding Level of Care Code Est Pt Level 4 (52397) Diagnoses Uncontrolled type 1 diabetes mellitus with hyperglycemia, with long-term current use of insulin E10.65 Nephropathy N28.9 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
[2024-11-09 14:26] LABS: Glucose, Whole Blood 151 mg/dL (60-115)
--- OUTSIDE RECORDS SUMMARY | 2024-11-09 17:52 | XMS_ITS | Clinical Summary ---
Author Organization [facility] Address [address] [place] [address] Phone Care Team Providers Care Visiting Professor Name Role Phone Unavailable Primary Care Provider Unavailabl e Immunizations Immunization Administration Dates Next Due DTP 07/31/1995, 3,05/03/1991,01/17,1990 H1N1 01/31/2009 Hep B, ped/adol 08/29/1995,06/29/1995,12/29/1994 Hib (PRP-T) 12/21/1991, 2,01/17/1991,11/14 Influenza Split 11/13/2011 Influenza, injectable, trivalent 03/15/2008 Influenza, intranasal, trivalent 12/23/2009 MMR 07/31/1995,12/21/1991 Meningococcal Conj (Menactra) MCV4P 11/13/2011,0 11/11/2006 OPV 07/31/1995, 3,01/17/1991,11/14 Td (adult) (MBL), 2 Lf tetan us toxoid, PF, adsorbed 01/10/2002 Tdap 04/26/2008 Family History Relation Name Status Comments Father Father: Diabete s mellitus, Coronary artery disease Other Family history of Diabetes mellitus Social History Tobacco Use Types Packs/Day Years Used Date Smoking Tobacco: Never Comments:Never smoker Sex and Gender Information Value Date Recorded Sex Assigned at Not on file Legal Sex Male 4:41 PM EDT Gender Identity Not on file Sexual Orientation Not on file Last Filed Vital Signs Vital Sign Reading Time Taken Comments Blood Pressure 118/60 11/13/2011 12:00 AM EDT Pulse 68 11/13/2011 12:00 AM EDT Temperature 35.1 C (95.2 F) 11/13/2011 12:00 AM EDT Respiratory Rate - - Oxygen Saturation - - Inhaled Oxygen Concentration - - Weight 68.9 kg (152 lb) 11/13/2011 12:00 AM EDT Height 172.7 cm (5' 8 ) 11/13/2011 12:00 AM EDT Body Mass Index 23.11 11/13/2011 12:00 AM EDT Plan of Treatment Health Maintenance Due Date Last Done Comments Varicella Vaccines (1 of 2 - 13+ 2-dose series) 01/20/2010 HPV Vaccines (1 - 3-dose SCDM series) 2017 DTaP,Tdap,and Td Vaccines (7 - Td or Tdap) 04/26/2018 04/26/2008, 01/10/2002, 07/31/1995, Additional history exists Influenza Vaccines (#1) 2024 11/13/19 12, 12/23/2009, 03/15/2008 COVID-19 Vaccine ( season) 2024 HIB Vaccines Completed 12/21/1991, 030 05/1991, 01/17/1991, Additional history exists IPV Vaccines Completed 07/31/1995, 05/0 06/1992, 01/17/1991, Additional history exists MMR Vaccines Completed 07/31/1995, 12/21/1991 Hepatitis B Vaccines Completed 08/29/1995, 06/29/1995, 12/29/1994 Meningococcal Vaccine Completed 11/13/2011, 007 Hepatitis A Vaccines Aged Out No long er eligible based on patient's age to complete this topic Men B Vaccine Aged Out No longer elig ible based on patient's age to complete this topic Pneumococcal Vaccine Aged Out No long er eligible based on patient's age to complete this topic
--- OUTSIDE RECORDS SUMMARY | 2024-11-09 17:52 | XMS_ITS | Clinical Summary ---
Author Organization [facility] Address [address] [place] [id number] Phone Care Team Providers Care Electric Screw Driver Operator Name Role Phone Anastasia Burgess MD Primary Care Provider Allergies Active Allergy Reactions Criticality Noted Date Comments Cephalexin Rash Low 03/09/2019 Latex, Natural Rubber Rash Low 09/11/2019 Lisinopril Other (See Comments) 03/09/2019 Chest pains Medications blood-glucose sensor (DEXCOM G6 SENSOR) Gabi by Miscellaneous route. Active blood-glucose transmitter (DEXCOM G6 TRANSMITTER) Gabi by Miscellaneous route. Active losartan (COZAAR) 50 MG tabletIndications:E ssential hypertension Take 1 tablet (50 mg total) by mouth daily. 90 tablet 3 03/09/19 20 Active atorvastatin (LIPITOR) 20 MG tabletIndications:H yperlipidemia LDL goal <100 Take 1 tablet (20 mg total) by mouth daily. 90 tablet 3 03/09/19 20 Active Additional Information Patient taking differently: 10 mgOral Daily, Reported on 04/11/2021 ONETOUCH DELICA LANCETS 30 gauge Misc 1 each by Miscellaneous route 4 (four) times a day. 400 each 3 07/27/19 20 Active ONETOUCH VERIO Strp strips 1 each by Miscellaneous route 4 (four) times a day. 400 strip 3 07/27/19 20 Active HUMALOG U-100 INSULIN 100 unit/mL injection vialIndications:Typ e 1 diabetes mellitus with microalbuminuria INJECT 100 UNITS UNDER THE SKIN CONTINUOUS 90 mL 05/26/19 23 Active Active Problems Problem Noted Date Diagnosed Date Type 1 diabetes mellitus with microalbuminuria 0 03/09/2019 Assessment & Plan (04/11/2021 10:07 AM EST): Hemoglobin A1c improved to 7.7% but he still has postprandial hyperglycemia and his target in range is only 51% that should be 70%. The issues are the same he is not bolusing 15 minutes before the meals. Sometimes he administers insulin after the meal. He is now carbohydrate counting correctly but he does enter carbs. Is difficult for most patients but one of the ways we can get around this is to decrease the correction factor even more. I have asked him to decrease the correction factor from 22-20 from midnight to 4 AM and decreased correction factor from 20-18 from 12 PM to midnight. This will give him more insulin for glucose levels. Again his carbohydrate ratio is already set lower than what I calculated I calculated 31 he is at 22 and 20 decreasing the correction scale will give him more insulin for glucose. Am not changing the carbohydrate ratio which is already set lower because he is not really carbohydrate counting. If he finds that he is going low he can decrease his basal settings so that he can get less basal insulin because he is getting too much basal insulin but he needs his more bolus insulin for food. Assessment & Plan (06/20/2020 12:49 PM EDT): Uncontrolled his hemoglobin A1c actually went up to 7.9% he is having elevated glucose in the evening. His basal to bolus ratio is 50:50 but the bolus ratio includes corrections. So one of the things that he can do is bolus 10 to 15 minutes before the meal to prevent postprandial hyperglycemia and to count carbohydrates accurately so he does not have to do additional corrections. I do not think that I need to increase the basal rate because then it is going to be much higher than the bolus ratio and he really should be doing 60% bolus and 40% basal ratio. I recalculated the carbohydrate ratio and sensitivity and he is actually set lower than what I calculated. He is not having hypoglycemia so I am not concerned over this. Some not can make any changes he just needs to use his pump more effectively and he knows what he is doing wrong he can just fix this. I will give him a follow-up appointment in 6 months time. Assessment & Plan (12/14/2019 11:56 AM EDT): His hemoglobin A1c is more or less the same at 7.6%. He is having hyperglycemia over the target and ranges better. He needs more basal insulin overall he is using mostly bolus insulin to correct for hyperglycemia so I went up on the basal rate by 0.4 units at each time frame this is an increase of 9.6 units/day and it amounts to over 10% increase in insulin. I did not change the carbohydrate ratio and sensitivity because when I calculated he is already set up below these rates so I did not want a change that. Again the bolus ratio was 65% and basal ratio 35% so indicates that he could use more basal insulin. Assessment & Plan (09/14/2019 12:10 PM EDT): Based on his average glucose the hemoglobin A1c correlates with a value of 8.2%. He is using more bolus than insulin so if he is a type I diabetic he is actually quite insulin resistant he needs more basal insulin and I will change the basal settings late evening and overnight where his glucose levels are running highest, this is indicated in the HPI I also decreased the sensitivity of correction factor from 25-22 and where he was at 22 I decreased it to 20 as indicated in the HPI. This should give him more insulin for glucose correction. Assessment & Plan (06/29/2019 3:16 PM EDT): At this point is difficult to manage and make adjustments to his insulin pump when I do not have the download. I think that we can obtain this via the Internet. I will have my medical accounts receivable specialist contact him to try to get his CGM and pump downloads. At this point would not make any changes. But after reviewing his downloads we can make adjustment if required. Assessment & Plan (03/09/2019 12:27 PM EST): Uncontrolled based on glycemic levels. He reports a good hemoglobin A1c of approximately 6.9% I do not have this results. He states that he is not anemic. However based on his glycemic levels though average A1c is approximately 7.8%. He has elevated glucose overnight and in the late evening. Based on my assessment he is getting a lot of bolus insulin which is appropriate since he eats a lot. However we want to maintain a balance between the basal and bolus insulin 60% bolus and 40% basal. I recalculated the carbohydrate ratio and sensitivity and these seem to be accurate so I did increase the basal rates from 12 AM to 4 AM. From 12 PM to 4 PM and from 9 PM to 12 AM there were minimal changes. Hopefully this will improve glycemic control without hypoglycemia. Essential hypertension 03/09/2019 Assessment & Plan (06/20/2020 12:31 PM EDT): Controlled. Urine microalbumin is not elevated he is on losartan continue current medications no changes. Assessment & Plan (09/14/2019 12:11 PM EDT): He does not consistently take losartan but his blood pressure is in the reference range and urine microalbumin creatinine ratio is in the normal reference range I would not make any changes. Assessment & Plan (03/09/2019 12:26 PM EST): Controlled on losartan 50 mg daily Hyperlipidemia LDL goal <100 03/09/2019 Assessment & Plan (04/11/2021 9:34 AM EST): Based on last LDL of 109 mg/dL he was not controlled but recall that he was placed on atorvastatin 10 mg and has not had repeat lipid panel. Negative make any changes into I see the lipid panel on cholesterol medications and see if this is within the reference range. Assessment & Plan (06/20/2020 12:32 PM EDT): LDL slightly elevated at 109 mg/dL should be less than 100. He was started on atorvastatin 10 mg no changes. Assessment & Plan (09/14/2019 12:11 PM EDT): Previously he had poor lipid control the LDL was elevated above the reference range but is now at 63 mg/dL and it does indicate that he is taking his statin appropriately I would not make any changes. Assessment & Plan (03/09/2019 12:29 PM EST): Uncontrolled his LDL was 143 mg/dL on Lipitor 20 mg daily. Since is my first time seeing the patient I rather just repeat the levels and see repeat levels before for making any other changes. Immunizations Immunization Administration Dates Next Due COVID-19 (Pre-12/21) Pfizer Vaccine, mRNA, PF INFLUENZA, SPLIT VIRUS, TRIVALENT PF 11/28/2023 Influenza, Unspecified Formulation 12/10/2020 Tdap 01/19/2019 Family History Medical History Relation Comments Diabetes Father No Known Problems Mother Relation Status Comments Father Alive Mother Alive Social History Tobacco Use Types Packs/Day Years Used Date Smoking Tobacco: Never Smokeless Tobacco: Never Alcohol Use Standard Drinks/Week Comments Yes 0 (1 standard drink = 0.6 oz pur e alcohol) social Education Answer Date Recorded Are you interested in more education? Not on christiano e 06/26/2022 Are you concerned about learning? Not on file 06/26/2022 No 06/26/2022 No 06/26/2022 Digital Access Answer Date Recorded No 07/25/2022 No 07/25/2022 No 07/25/2022 Reliable internet access at home? Not on file 07/25/2022 Device with a working camera? Not on file Sex and Gender Information Value Date Recorded Sex Assigned at Not on file Legal Sex Male 2:46 PM EST Gender Identity Not on file Sexual Orientation Not on file Last Filed Vital Signs Vital Sign Reading Time Taken Comments Blood Pressure 126/82 04/11/2021 9:29 AM EST Pulse 86 04/11/2021 9:29 AM EST Temperature - - Respiratory Rate - - Oxygen Saturation 98% 04/11/2021 9:29 AM EST Inhaled Oxygen Concentration - - Weight 88.4 kg (194 lb 12.8 oz) 04/11/2021 9:29 AM EST Height 174.2 cm (5' 8.58 ) 04/11/2021 9:29 AM ES T Body Mass Index 29.12 04/11/2021 9:29 AM EST Plan of Treatment Health Maintenance Due Date Last Done Comments BLOOD PRESSURE 1990 DEPRESSION SCREENING 2002 HEPATITIS C SCREENING 2008 HIV ONE-TIME SCREENING (18-65 YEARS) 2008 PNEUMOCOCCAL VACCINES (0-49 years) (1 of 2 - PCV) 2009 DIABETIC EYE EXAM 03/09/2019 CREATININE LEVEL 06/08/2021 06/08/2020 POTASSIUM LEVEL 06/08/2021 06/08/2020 HEMOGLOBIN A1C 10/09/2021 04/11/2021, 05/30, 12/14/2019 INFLUENZA VACCINE (#1) 2024 4, 12/10/2020, 11/13/2011, Additional history exists COVID-19 VACCINE ( season) 2024 02/26/2021, 03/27/2020, 03/06/2020 Adult Td,Tdap Booster 01/19/2029 01/19/2019 , 04/26/2008, 01/10/2002 HIB VACCINES Completed 12/21/1991, 05/1991, 01/17/1991, Additional history exists MENINGOCOCCAL VACCINES (ACWY) Completed 11/13/2011, 11/11/2006 SMOKING STATUS SCREENING (Once After 26 Yrs) Completed 03/09/2019 HEPATITIS A VACCINES Aged Out No long er eligible based on patient's age to complete this topic MENINGOCOCCAL VACCINES (B) Aged Out N o longer eligible based on patient's age to complete this topic Medical Devices Not on file Procedures Procedure Name Priority Date/Time Associated Diagnosis Comments POCT HEMOGLOBIN A1C Routine 04/11/2021 1 0:03 AM EST Type 1 diabetes mellitus with microalbuminuria COMPREHENSIVE METABOLIC PANEL Routine 06/08/2020 10:33 AM EDT Hypercholesteremia Essential hypertension Routine general medical examination at a health care facility from Last 3 Months or Most Recently Relevant to Health Maintenance Results * (ABNORMAL) POCT Hemoglobin A1c (04/11/2021 10:03 AM EST) Hemoglobin A1c 7.7(A) 4.2 - 5.8 % Other 04/11/2021 10:0 3 AM EST us Galileo Fair DO POINT OF CARE TEST ORDERABLES Fi nal Result * (ABNORMAL) Comprehensive metabolic panel (06/08/2020 10:33 AM EDT) SODIUM 144 133 - 146 mmol/L [facility] POTASSIUM 4.4 3.3 - 5.1 mmol/L [facility] CHLORIDE 105 96 - 108 mmol/L [facility] CO2 29 21 - 35 mmol/L [facility] BUN 13 6 - 19 mg/dL [facility] CREATININE 1.00 0.5 - 1.5 mg/dL [facility] GLUCOSE 124(H) 70 - 99 mg/dL [facility] ALBUMIN 4.5 3.9 - 4.8 g/dL [facility] TOTAL PROTEIN 7.3 6.5 - 8.0 g/dL [facility] CALCIUM 9.7 8.4 - 10.3 mg/dL [facility] ALKALINE PHOSPHATASE 94 39 - 117 U/L [facility] TOTAL BILIRUBIN 0.6 0.0 - 1.2 mg/dL [facility] AST 29 0 - 37 U/L [facility] ALT 30 0 - 40 U/L [facility] GLOBULIN 2.8 1 - 4.8 g/dL [facility] EGFR 101 >59 mL/min/1.7 3m2 [facility] Comment:Estimated glomerular filtration rate calculated using the CKD-EPI equation. ANION GAP 14 10 - 20 mmol/L [facility] Blood 06/08/2020 10:3 3 AM EDT 06/08/2020 10:37 AM EDT us Anastasia Burgess MD LAB BLOOD ORDERABLES F inal Result Performing Organization Address City/State/[facility] Co de Phone Number [facility] [address] [place] [address] from Last 3 Months or Most Recently Relevant to Health Maintenance Insurance [employer] [facility] [address] [place] [address] [facility] [place] [place] [address] [place] [address] [facility]WORK [facility] Care Teams Electric Screw Driver Operator Relationship Specialty Start Date End Date Anastasia Burgess MD [address] [place] [address] Dr Clement, JANET [id number] PCP - General Internal Medicine 02/06/19 Additional Source Comments The information contained in this document represents components of the legal health record. It is not the complete legal health record.[facility]
--- OUTSIDE RECORDS SUMMARY | 2024-11-09 17:52 | XMS_ITS | Encounter Summary ---
Author Organization [facility] Address [address] [place] [address] Phone Care Team Providers Care Podiatric Medicine Professor Name Role Phone Hang Herman MD Primary Care Provider Inga candelario Encounter Details Date Type Department Care Team (Late st Contact Info) Description 06/30/2011 Documentation [facility] Family Medicine [address] [place] [address] Family Medicine, Physician [address] [place], [place] [id number] Social History Tobacco Use Types Packs/Day Years [...] on filedocumented in this encounter Care Teams Podiatric Medicine Professor Relationship Specialty Start Date End Date Hang Herman MD PCP - General 10/09/16 05/13/22 documented as of this encounter
--- OUTSIDE RECORDS SUMMARY | 2024-11-09 17:52 | XMS_ITS | Encounter Summary ---
Author Organization [facility] Address [address] [place] [address] Phone Care Team Providers Care Chin Strap Cutter Name Role Phone Hang Herman MD Primary Care Provider Inga candelario Encounter Details Date Type Department Care Team (Late st Contact Info) Description 10/15/2016 Conversion Encounter [facility] - [address] [id number] Social History Tobacco Use Types Packs/Day Years [...] on filedocumented in this encounter Care Teams Chin Strap Cutter Relationship Specialty Start Date End Date Hang Herman MD PCP - General 10/09/16 05/13/22 documented as of this encounter
--- OUTSIDE RECORDS SUMMARY | 2024-11-09 17:52 | XMS_ITS | Encounter Summary ---
Author Organization [facility] Address [address] [place] [address] Phone Care Team Providers Care Cleaning Crew Member Name Role Phone Hang Herman MD Primary Care Provider Inga candelario Encounter Details Date Type Department Care Team (Late st Contact Info) Description 12/23/2010 Documentation [facility] Family Medicine [address] [place] [address] Family Medicine, Physician [address] [place], [place] [id number] Social History Tobacco Use Types Packs/Day Years [...] on filedocumented in this encounter Care Teams Cleaning Crew Member Relationship Specialty Start Date End Date Hang Herman MD PCP - General 10/09/16 05/13/22 documented as of this encounter
== END 2024-11-09 14:58 | disposition home or self-care (01) ==
LOC: HO.ENCR 14:01
PROVIDERS: PCP Internal Medicine; Visit Provider Student in an Organized Health Care Education/Training Program
DX: E10.65 Type 1 diabetes mellitus with hyperglycemia (principal); N28.9 Disorder of kidney and ureter, unspecified; E10.69 Type 1 diabetes mellitus with other specified complication; E78.5 Hyperlipidemia, unspecified; Z96.41 Presence of insulin pump (external) (internal); Z13.9 Encounter for screening, unspecified
CPT/HCPCS: 95251; 99214

== ENCOUNTER → 2024-11-09 14:00 | Outpatient (BNVA) | payer OTHER, SELFPAY | PROVIDERS: PCP Internal Medicine; Visit Provider Student in an Organized Health Care Education/Training Program | DX: E10.65 Type 1 diabetes mellitus with hyperglycemia (principal); E10.21 Type 1 diabetes mellitus with diabetic nephropathy; E10.69 Type 1 diabetes mellitus with other specified complication; N28.9 Disorder of kidney and ureter, unspecified; E78.5 Hyperlipidemia, unspecified; Z13.9 Encounter for screening, unspecified; Z96.41 Presence of insulin pump (external) (internal) | CPT/HCPCS: 82947; 83036 ==